=== PATIENT | female | born 1985 | race Caucasian/White ===

== ENCOUNTER 2016-12-13 11:35 | Emergency (ER) | payer MEDICAID ==
[~2016-12-13] VITALS: Ht 167.6 cm; Wt 100.0 kg
[~2016-12-13 11:35] MED LIST: ALLERGY10 M1 PO; AMOXICILLIN500 MG OR; ATENOLOL25 MG PO; AUGMENTIN875TAB PO; BACTRIM DS1 TAB PO; BIRTH CONTROL PILLS; CEPHALEXIN500 MG PO; CIPRO500 MG OR; CIPROFLOXACN500 MG PO; CONCEPT DHA PO; EFFEXOR XR37.5 MG PO; FLEXERIL PO; FLONASE NASAL50 MCG; KEFLEX500 M1 PO; LORTAB 5 OR; LORTAB 7.5-3251 TAB PO; LORTAB 7.57.5 MG PO; MACRODANTIN100 MG PO; NAPROSYN500 MG OR; NAPROSYN500 MG PO; NO HOME MEDS; NO MEDS; ONDANSETRON4 MG PO; PERCOCET 5/325M1 TAB OR; PERCOCET 5/325M1 TAB PO; PHENERGAN12.5 MG/TA PO; PHENERGAN25 MG/ML IM; PHENTERMINE37.5 MG PO; PROMETHAZINE25 MG OR; PYRIDIUM200 MG PO; RESTORIL15 MG PO; ROCEPHIN 1 GM1 GM IM; SPRINTEC 2828 DAY PO; TAM75CAP PO; TRIAMCINOLON0.025 % EX; ULTRAM50 M1 PO; ULTRAM50 MG OR; ZITHROMAX250 MG OR; ZOFRAN ODT4 MG PO; ZOFRAN4 MG/TAB PO
[2016-12-13] MEDS ORDERED: LORAZEPAM0.5 MG PO (11:51)
[2016-12-13] MEDS ORDERED: VENLAFAXINE HC150 MG PO (11:52)
[2016-12-13] MEDS ORDERED: MOTRIN800 MG PO (12:30)
[2016-12-13 12:35] VITALS: BP 131/84
== END 2016-12-13 12:35 | disposition home or self-care (01) | DRG 605 ==
LOC: ED 11:35
DX: S90.122A Contusion of left lesser toe(s) without damage to nail, initial encounter (principal); W50.0XXA Accidental hit or strike by another person, initial encounter; Y93.83 Activity, rough housing and horseplay; Y92.009 Unspecified place in unspecified non-institutional (private) residence as the place of occurrence of the external cause

== ENCOUNTER 2017-07-04 11:21 | Emergency (ER) | payer BC, MEDICAID ==
[~2017-07-04] VITALS: Ht 167.6 cm; Wt 93.0 kg
[~2017-07-04 11:21] MED LIST changes: +LORAZEPAM0.5 MG PO; +MOTRIN800 MG PO; +VENLAFAXINE HC150 MG PO
[2017-07-04 12:00] LABS: INFLUENZA A NONE DETECTED (NONE DETECT); INFLUENZA B NONE DETECTED (NONE DETECT)
[2017-07-04] MEDS ORDERED: ROBITUSSIN AC10 ML PO (12:04)
[2017-07-04] MEDS ORDERED: CLARITIN10 M1 PO (12:04)
[2017-07-04] MEDS ORDERED: AMOXICILLIN500 MG PO (12:04)
[2017-07-04 12:05] VITALS: BP 131/79
== END 2017-07-04 12:05 | disposition home or self-care (01) | DRG 153 ==
LOC: ED 11:21
PROVIDERS: Emergency Medicine
DX: J04.0 Acute laryngitis (principal); F17.210 Nicotine dependence, cigarettes, uncomplicated; J02.9 Acute pharyngitis, unspecified; R05 Cough; R19.7 Diarrhea, unspecified; R50.9 Fever, unspecified

== ENCOUNTER 2017-10-15 20:54 | Emergency (ER) | payer BC ==
[~2017-10-15] VITALS: Ht 167.6 cm; Wt 91.6 kg
[~2017-10-15 20:54] MED LIST changes: +AMOXICILLIN500 MG PO; +CLARITIN10 M1 PO; +ROBITUSSIN AC10 ML PO
[2017-10-15] MEDS ORDERED: ATIVAN0.5 MG PO (21:03)
[2017-10-15] MEDS ORDERED: EFFEXOR75 MG PO (21:03)
[2017-10-15 21:40] LABS: HEMATOCRIT 41.3 % (37.0-47.0); HEMOGLOBIN 13.9 g/dl (12.0-16.0); IMMATURE GRANULOCYTES 0.4 % (0.0-1.0); MEAN CELL VOLUME 97.9 fL CALC (80.0-100.0); MEAN CORPUSCULAR HGB 32.9 pG CALC (26.0-32.0); MEAN CORPUSCULAR HGB CONC 33.7 g/L CALC (32.0-36.0); NEUT# 7.26 thou/uL (2.00-7.15); RED BLOOD COUNT 4.22 mill/uL (4.20-5.60); RED CELL DISTRI WIDTH 13.1 % (11.5-15.5)
[2017-10-15 21:41] LABS: URINE BILIRUBIN - DIPSTICK NEGATIVE (NEGATIVE); URINE BLOOD DIPSTICK LARGE (NEGATIVE); URINE GLUCOSE - DIPSTICK NEGATIVE (NEGATIVE); URINE KETONE NEGATIVE (NEGATIVE); URINE LEUK ESTERASE NEGATIVE (NEGATIVE); URINE NITRITE - DIPSTICK NEGATIVE (Negative); URINE PH 5.5 (4.5-8.0); URINE PROTEIN - DIPSTICK TRACE mg/dL (NEG-TRACE); URINE SPECIFIC GRAVITY >=1.030; URINE UROBILINOGEN - DIPSTICK 0.2 E.U./dL (0.2)
[2017-10-15 21:46] LABS: URINE CLARITY CLOUDY; URINE COLOR AMBER
[2017-10-15 21:47] LABS: URINE RBC >100 RBC/hpf (0-5); URINE SQUAMOUS EPITHELIAL CELL FEW EPI/hpf (0-FEW)
[2017-10-15 21:53] LABS: ALBUMIN 4.3 g/dL (3.2-5.0); ALKALINE PHOSPHATASE 58 u/l (38-126); ANION GAP 17 (6-22 (CALC)); BILIRUBIN, TOTAL 0.5 mg/dL (0.0-1.4); BUN 11 mg/dL (7-17); BUN/CREATININE RATIO 15 (12-20 (CALC)); CARBON DIOXIDE 25 mmol/l (22-30); CHLORIDE 105 mmol/l (95-108); CREATININE 0.8 mg/dL (0.5-1.0); GFR > 60 ML/MIN (>=60 (CALC)); GFR FOR AFR.AMER. > 60 ML/MIN (>=60 (CALC)); POTASSIUM 4.2 mmol/l (3.5-5.1); SGOT/AST 25 u/l (14-36); SGPT/ALT 28 u/l (9-52); SODIUM 143 mmol/l (137-146); TOTAL PROTEIN 7.6 g/dL (6.3-8.2)
[2017-10-15] MEDS ORDERED: TRAMADOL HCL50 MG PO (23:10)
[2017-10-15] MEDS ORDERED: BACTRIM DS1 TAB PO (23:10)
[2017-10-15 23:30] VITALS: BP 100/57
== END 2017-10-15 23:30 | disposition home or self-care (01) | DRG 392 ==
LOC: ED 20:54
PROVIDERS: Family Medicine
DX: R10.32 Left lower quadrant pain (principal); D72.829 Elevated white blood cell count, unspecified; F17.210 Nicotine dependence, cigarettes, uncomplicated; Z87.442 Personal history of urinary calculi

== ENCOUNTER 2018-04-25 14:06 | Emergency (ER) | payer BC, MEDICAID ==
[~2018-04-25] VITALS: Ht 167.6 cm; Wt 80.0 kg
[~2018-04-25 14:06] MED LIST changes: +ATIVAN0.5 MG PO; +EFFEXOR75 MG PO; +TRAMADOL HCL50 MG PO
[2018-04-25 16:00] LABS: INFLUENZA A NONE DETECTED (NONE DETECT); INFLUENZA B NONE DETECTED (NONE DETECT)
[2018-04-25] MEDS ORDERED: TAM75CAP PO (16:26)
[2018-04-25] MEDS ORDERED: ZITHROMAX250 MG PO (16:26)
[2018-04-25] MEDS ORDERED: TORADOL PO (16:26)
[2018-04-25 16:30] VITALS: BP 121/75
== END 2018-04-25 16:30 | disposition home or self-care (01) | DRG 153 ==
LOC: ED 14:06
PROVIDERS: Emergency Medicine
DX: J06.9 Acute upper respiratory infection, unspecified (principal); F17.200 Nicotine dependence, unspecified, uncomplicated

== ENCOUNTER 2018-06-16 18:55 | Emergency (ER) | payer BC, MEDICAID ==
[~2018-06-16] VITALS: Ht 167.6 cm; Wt 85.4 kg
[~2018-06-16 18:55] MED LIST changes: +TORADOL PO; +ZITHROMAX250 MG PO
[2018-06-16] MEDS ORDERED: FLEXERIL PO (19:37)
[2018-06-16 19:44] VITALS: BP 127/74
== END 2018-06-16 19:46 | disposition home or self-care (01) | DRG 563 ==
LOC: ED 18:55
DX: S46.811A Strain of other muscles, fascia and tendons at shoulder and upper arm level, right arm, initial encounter (principal); M62.838 Other muscle spasm; M79.601 Pain in right arm; X50.0XXA Overexertion from strenuous movement or load, initial encounter; Y93.89 Activity, other specified; Y92.89 Other specified places as the place of occurrence of the external cause; Y99.0 Civilian activity done for income or pay

== ENCOUNTER 2018-08-07 11:00 | Outpatient (RCR) | payer BC, MEDICAID | END 2018-08-07 12:00 | disposition home or self-care (01) | DRG 74 | LOC: PT 11:00 | PROVIDERS: ATTEND Internal Medicine | DX: M54.12 Radiculopathy, cervical region (principal) ==

== ENCOUNTER 2018-10-09 10:53 | Emergency (ER) | payer BC, MEDICAID ==
[~2018-10-09] VITALS: Ht 167.6 cm; Wt 75.0 kg
[2018-10-09 12:09] LABS: URINE BILIRUBIN - DIPSTICK NEGATIVE (NEGATIVE); URINE BLOOD DIPSTICK SMALL (NEGATIVE); URINE COLOR YELLOW; URINE GLUCOSE - DIPSTICK NEGATIVE (NEGATIVE); URINE KETONE NEGATIVE (NEGATIVE); URINE LEUK ESTERASE NEGATIVE (NEGATIVE); URINE NITRITE - DIPSTICK NEGATIVE (Negative); URINE PH 6.5 (4.5-8.0); URINE PROTEIN - DIPSTICK NEGATIVE (NEG-TRACE); URINE UROBILINOGEN - DIPSTICK 0.2 E.U./dL (0.2)
[2018-10-09] MEDS ORDERED: DIFLUCAN150 MG PO (12:20)
[2018-10-09 12:22] LABS: URINE SQUAMOUS EPITHELIAL CELL FEW EPI/hpf (0-FEW); URINE WBC 0-2 WBC/hpf (0-5)
[2018-10-09 12:25] VITALS: BP 124/83
== END 2018-10-09 12:31 | disposition home or self-care (01) | DRG 759 ==
LOC: ED 10:53
PROVIDERS: Family Medicine
DX: B37.3 Candidiasis of vulva and vagina (principal); F17.200 Nicotine dependence, unspecified, uncomplicated; Z20.2 Contact with and (suspected) exposure to infections with a predominantly sexual mode of transmission

== ENCOUNTER 2019-03-28 16:44 | Emergency (ER) | payer BC ==
[~2019-03-28] VITALS: Ht 167.6 cm; Wt 83.0 kg
[~2019-03-28 16:44] MED LIST changes: +DIFLUCAN150 MG PO
[2019-03-28] MEDS ORDERED: KEFLEX500 M1 PO (17:06)
[2019-03-28] MEDS ORDERED: BACTROBAN TOP (17:06)
[2019-03-28 17:10] VITALS: BP 114/76
== END 2019-03-28 17:10 | disposition home or self-care (01) | DRG 935 ==
LOC: ED 16:44
DX: T23.012A Burn of unspecified degree of left thumb (nail), initial encounter (principal); L08.9 Local infection of the skin and subcutaneous tissue, unspecified; F17.200 Nicotine dependence, unspecified, uncomplicated; X08.8XXA Exposure to other specified smoke, fire and flames, initial encounter

== ENCOUNTER 2019-08-28 | Emergency (ER) | payer OTHER, BC ==
[~2019-08-28] MED LIST changes: +BACTROBAN TOP
[2019-08-28 21:55] LABS: HEMATOCRIT 40.5 % (37.0-47.0); HEMOGLOBIN 13.4 g/dl (12.0-16.0); IMMATURE GRANULOCYTES 0.3 % (0.0-5.0); MEAN CELL VOLUME 97.1 fL CALC (80.0-100.0); MEAN CORPUSCULAR HGB 32.1 pG CALC (26.0-32.0); MEAN CORPUSCULAR HGB CONC 33.1 g/dL CAL (32.0-36.0); NEUT# 6.79 thou/uL (2.00-7.15); RED BLOOD COUNT 4.17 mill/uL (4.20-5.60); RED CELL DISTRI WIDTH 12.8 % (11.5-15.5)
[2019-08-28 22:06] LABS: ALBUMIN 4.3 g/dL (3.2-5.0); ALKALINE PHOSPHATASE 57 u/l (38-126); ANION GAP 13 (6-22 (CALC)); BILIRUBIN, TOTAL 0.5 mg/dL (0.0-1.4); BUN 11 mg/dL (7-17); BUN/CREATININE RATIO 15 (12-20 (CALC)); CARBON DIOXIDE 25 mmol/l (22-30); CHLORIDE 108 mmol/l (95-108); CREATININE 0.7 mg/dL (0.5-1.0); GFR > 60 ML/MIN (>=60 (CALC)); GFR FOR AFR.AMER. > 60 ML/MIN (>=60 (CALC)); LIPASE 45 u/l (23-300); MAGNESIUM 2.4 mg/dL (1.6-2.3); POTASSIUM 3.6 mmol/l (3.5-5.1); SGOT/AST 25 u/l (14-36); SODIUM 143 mmol/l (137-146); TOTAL PROTEIN 7.6 g/dL (6.3-8.2)
[2019-08-28 22:12] LABS: INTERNATIONAL NORMALIZED RATIO 1.1 RATIO (0.7-1.3); PROTHROMBIN TIME 11.1 SECONDS (9.0-12.5)
[2019-08-29 03:40] LABS: URINE BILIRUBIN - DIPSTICK NEGATIVE (NEGATIVE); URINE BLOOD DIPSTICK NEGATIVE (NEGATIVE); URINE COLOR YELLOW; URINE GLUCOSE - DIPSTICK NEGATIVE (NEGATIVE); URINE KETONE NEGATIVE (NEGATIVE); URINE LEUK ESTERASE NEGATIVE (NEGATIVE); URINE NITRITE - DIPSTICK NEGATIVE (Negative); URINE PH 7.5 (4.5-8.0); URINE PROTEIN - DIPSTICK NEGATIVE (NEG-TRACE); URINE SPECIFIC GRAVITY 1.015
== END 2019-08-29 05:23 | disposition home or self-care (01) | DRG 153 ==
DX: J06.9 Acute upper respiratory infection, unspecified (principal); L03.317 Cellulitis of buttock; F17.210 Nicotine dependence, cigarettes, uncomplicated
CPT/HCPCS: Q9967

== ENCOUNTER 2020-09-01 14:00 | Emergency (ER) | payer OTHER ==
[~2020-09-01] VITALS: Ht 167.6 cm; Wt 73.0 kg
[2020-09-01] MEDS ORDERED: HYDROCO/APAP1 TA9 PO (17:47)
[2020-09-01 17:51] VITALS: BP 126/72
== END 2020-09-01 18:05 | disposition home or self-care (01) ==
LOC: ED 14:00
DX: S00.03XA Contusion of scalp, initial encounter (principal); S16.1XXA Strain of muscle, fascia and tendon at neck level, initial encounter; S10.93XA Contusion of unspecified part of neck, initial encounter; S50.311A Abrasion of right elbow, initial encounter; S50.812A Abrasion of left forearm, initial encounter; S90.512A Abrasion, left ankle, initial encounter; S80.812A Abrasion, left lower leg, initial encounter; F17.210 Nicotine dependence, cigarettes, uncomplicated; Y00.XXXA Assault by blunt object, initial encounter; Y92.009 Unspecified place in unspecified non-institutional (private) residence as the place of occurrence of the external cause

== ENCOUNTER 2020-09-21 14:34 | Emergency (ER) | payer OTHER ==
[~2020-09-21 14:34] MED LIST changes: +HYDROCO/APAP1 TA9 PO
[2020-09-21 15:45] VITALS: BP 109/65
== END 2020-09-21 15:45 | disposition home or self-care (01) ==
LOC: ED 14:34
DX: J10.1 Influenza due to other identified influenza virus with other respiratory manifestations (principal); Z20.822 Contact with and (suspected) exposure to COVID-19; F17.210 Nicotine dependence, cigarettes, uncomplicated

== ENCOUNTER 2021-12-05 10:39 | Emergency (ER) | payer BC, OTHER ==
[~2021-12-05] VITALS: Ht 167.6 cm; Wt 78.0 kg
[2021-12-05 11:12] VITALS: BP 117/70
[2021-12-05] MEDS ORDERED: CIPROFLOXACN750 MG PO (11:17)
[2021-12-05] MEDS ORDERED: DOXYCYCLINE40 MG (11:17)
[2021-12-05] MEDS ORDERED: DIFLUCAN40 MG/ML PO (11:18)
[2021-12-05 11:33] LABS: HEMATOCRIT 38.8 % (37.0-47.0); HEMOGLOBIN 12.4 g/dl (12.0-16.0); IMMATURE GRANULOCYTES 0.4 % (0.0-5.0); MEAN CELL VOLUME 101.6 fL CALC (80.0-100.0); MEAN CORPUSCULAR HGB 32.5 pG CALC (26.0-32.0); NEUT# 7.86 thou/uL (2.00-7.15); RED BLOOD COUNT 3.82 mill/uL (4.20-5.60); RED CELL DISTRI WIDTH 13.9 % (11.5-15.5)
[2021-12-05 12:28] LABS: ALBUMIN 4.1 g/dL (3.2-5.0); ALKALINE PHOSPHATASE 50 u/l (38-126); ANION GAP 10 (6-22 (CALC)); BILIRUBIN, TOTAL 0.4 mg/dL (0.0-1.4); BUN 8 mg/dL (7-17); BUN/CREATININE RATIO 10 (12-20 (CALC)); CARBON DIOXIDE 26 mmol/l (22-30); CHLORIDE 107 mmol/l (95-108); CREATININE 0.8 mg/dL (0.5-1.0); GFR FOR AFR.AMER. > 60 ML/MIN (>=60 (CALC)); GFR OTHER RACES > 60 ML/MIN (>=60 (CALC)); POTASSIUM 3.7 mmol/l (3.5-5.1); SGOT/AST 19 u/l (14-36); SODIUM 139 mmol/l (137-146); TOTAL PROTEIN 6.5 g/dL (6.3-8.2)
== END 2021-12-05 13:45 | disposition home or self-care (01) | DRG 951 ==
LOC: ED 10:39
PROVIDERS: Family Medicine
DX: Z77.21 Contact with and (suspected) exposure to potentially hazardous body fluids (principal); F17.210 Nicotine dependence, cigarettes, uncomplicated

== ENCOUNTER 2022-03-01 18:20 | Emergency (ER) | payer BC, OTHER ==
[~2022-03-01] VITALS: Ht 167.6 cm; Wt 75.0 kg
[2022-03-01] VITALS (14 sets, daily range): BP systolic 96–125; BP diastolic 37–78
[~2022-03-01 18:20] MED LIST changes: +CIPROFLOXACN750 MG PO; +DIFLUCAN40 MG/ML PO; +DOXYCYCLINE40 MG
[2022-03-01 19:07] LABS: HEMATOCRIT 35.5 % (37.0-47.0); HEMOGLOBIN 11.8 g/dl (12.0-16.0); IMMATURE GRANULOCYTES 0.2 % (0.0-5.0); MEAN CELL VOLUME 95.9 fL CALC (80.0-100.0); MEAN CORPUSCULAR HGB 31.9 pG CALC (26.0-32.0); MEAN CORPUSCULAR HGB CONC 33.2 g/dL CAL (32.0-36.0); NEUT# 7.49 thou/uL (2.00-7.15); RED BLOOD COUNT 3.7 mill/uL (4.20-5.60)
[2022-03-01 19:08] LABS: URINE BILIRUBIN - DIPSTICK NEGATIVE (NEGATIVE); URINE BLOOD DIPSTICK NEGATIVE (NEGATIVE); URINE COLOR YELLOW; URINE GLUCOSE - DIPSTICK NEGATIVE (NEGATIVE); URINE KETONE NEGATIVE (NEGATIVE); URINE LEUK ESTERASE NEGATIVE (NEGATIVE); URINE PROTEIN - DIPSTICK NEGATIVE (NEG-TRACE); URINE SPECIFIC GRAVITY >=1.030; URINE UROBILINOGEN - DIPSTICK 0.2 E.U./dL (0.2)
[2022-03-01 19:10] LABS: URINE NITRITE - DIPSTICK NEGATIVE (Negative)
[2022-03-01 19:24] LABS: ALBUMIN 3.8 g/dL (3.2-5.0); ALKALINE PHOSPHATASE 44 u/l (38-126); ANION GAP 10 (6-22 (CALC)); BUN 8 mg/dL (7-17); BUN/CREATININE RATIO 12 (12-20 (CALC)); CARBON DIOXIDE 22 mmol/l (22-30); CHLORIDE 110 mmol/l (95-108); CREATININE 0.7 mg/dL (0.5-1.0); GFR FOR AFR.AMER. > 60 ML/MIN (>=60 (CALC)); GFR OTHER RACES > 60 ML/MIN (>=60 (CALC)); LIPASE 66 u/l (23-300); POTASSIUM 3.7 mmol/l (3.5-5.1); SGOT/AST 25 u/l (14-36); SODIUM 138 mmol/l (137-146); TOTAL PROTEIN 6.2 g/dL (6.3-8.2)
[2022-03-01 19:27] LABS: BILIRUBIN, TOTAL 0.2 mg/dL (0.0-1.4)
[2022-03-01 19:37] LABS: MYOGLOBIN 15 ng/mL (0 - 62)
[2022-03-01] MEDS ORDERED: ULTRAM50 M1 PO (20:46)
[2022-03-01] MEDS ORDERED: DICYCLOMINE10 MG PO (20:46)
[2022-03-01] MEDS ORDERED: ONDANSETRON4 MG PO (20:46)
== END 2022-03-01 21:26 | disposition home or self-care (01) | DRG 866 ==
LOC: ED 18:20
PROVIDERS: Nurse Practitioner
DX: B34.9 Viral infection, unspecified (principal); R14.0 Abdominal distension (gaseous); F17.200 Nicotine dependence, unspecified, uncomplicated; Z20.822 Contact with and (suspected) exposure to COVID-19
CPT/HCPCS: Q9967

== ENCOUNTER 2022-06-02 09:59 | Emergency (ER) | payer BC, OTHER ==
[~2022-06-02] VITALS: Ht 167.6 cm; Wt 80.5 kg
[~2022-06-02 09:59] MED LIST changes: +DICYCLOMINE10 MG PO
[2022-06-02 11:07] LABS: URINE BILIRUBIN - DIPSTICK NEGATIVE (NEGATIVE); URINE BLOOD DIPSTICK MODERATE (NEGATIVE); URINE COLOR YELLOW; URINE GLUCOSE - DIPSTICK NEGATIVE (NEGATIVE); URINE KETONE NEGATIVE (NEGATIVE); URINE LEUK ESTERASE NEGATIVE (NEGATIVE); URINE PROTEIN - DIPSTICK NEGATIVE (NEG-TRACE); URINE SPECIFIC GRAVITY >=1.030; URINE UROBILINOGEN - DIPSTICK 0.2 E.U./dL (0.2)
[2022-06-02 11:10] LABS: URINE NITRITE - DIPSTICK NEGATIVE (Negative)
[2022-06-02 11:20] LABS: URINE BACTERIA FEW hpf; URINE MUCUS FEW hpf (NONE-FEW); URINE SQUAMOUS EPITHELIAL CELL FEW EPI/hpf (0-FEW); URINE WBC 0-2 WBC/hpf (0-5)
[2022-06-02] MEDS ORDERED: PAXLOVID PO (11:26)
== END 2022-06-02 13:00 | disposition home or self-care (01) | DRG 179 ==
LOC: ED 09:59
PROVIDERS: Family Medicine
DX: U07.1 COVID-19 (principal); F17.210 Nicotine dependence, cigarettes, uncomplicated; R30.0 Dysuria; R00.2 Palpitations

== ENCOUNTER 2022-06-23 10:40 | Emergency (ER) | payer BC, OTHER ==
[~2022-06-23] VITALS: Ht 167.6 cm; Wt 80.8 kg
[~2022-06-23 10:40] MED LIST changes: +PAXLOVID PO
[2022-06-23 10:48] VITALS: BP 114/70
[2022-06-23 11:00] VITALS: BP 110/70
[2022-06-23 11:15] VITALS: BP 105/66
[2022-06-23 11:30] VITALS: BP 110/69
[2022-06-23] MEDS ORDERED: BACTRIM DS1 TAB PO (11:36)
[2022-06-23 11:45] VITALS: BP 103/52
[2022-06-23 11:49] VITALS: BP 103/52
== END 2022-06-23 11:55 | disposition home or self-care (01) | DRG 607 ==
LOC: ED 10:40
DX: L73.8 Other specified follicular disorders (principal)

== ENCOUNTER 2022-09-06 11:59 | Emergency (ER) | payer BC, OTHER ==
[~2022-09-06] VITALS: Ht 167.6 cm; Wt 83.9 kg
[2022-09-06] MEDS ORDERED: AMOX/K CLAV875 M1 PO (13:03)
[2022-09-06 13:18] VITALS: BP 106/62
[2022-09-06 13:22] VITALS: BP 106/62
== END 2022-09-06 13:25 | disposition home or self-care (01) | DRG 153 ==
LOC: ED 11:59
DX: H66.91 Otitis media, unspecified, right ear (principal); Z20.822 Contact with and (suspected) exposure to COVID-19; F17.210 Nicotine dependence, cigarettes, uncomplicated

== ENCOUNTER 2023-12-18 12:39 | Emergency (ER) | payer BC ==
[~2023-12-18] VITALS: Ht 167.6 cm; Wt 81.0 kg
[~2023-12-18 12:39] MED LIST changes: +AMOX/K CLAV875 M1 PO; +VOLTAREN - GENE75 MG PO
[2023-12-18 13:10] LABS: URINE BILIRUBIN - DIPSTICK Negative (NEGATIVE); URINE BLOOD DIPSTICK Trace-intact (NEGATIVE); URINE GLUCOSE - DIPSTICK Negative (NEGATIVE); URINE KETONE Negative (NEGATIVE); URINE LEUK ESTERASE Trace (NEGATIVE); URINE NITRITE - DIPSTICK Negative (Negative); URINE PH 6.5 (4.5-8.0); URINE PROTEIN - DIPSTICK Negative (NEG-TRACE); URINE SPECIFIC GRAVITY 1.025; URINE UROBILINOGEN - DIPSTICK 0.2 E.U./dL (0.2)
[2023-12-18 13:11] LABS: URINE COLOR Yellow
[2023-12-18 13:12] LABS: BASO% 0.5 % (0-3); EOS% 1.8 % (0-8); HEMATOCRIT 40.7 % (37.0-47.0); IMMATURE GRANULOCYTES 0.2 % (0.0-5.0); LYMPH% 24.2 % (15-41); MEAN CORPUSCULAR HGB 30.4 pG CALC (26.0-32.0); MEAN CORPUSCULAR HGB CONC 31.9 g/dL CAL (32.0-36.0); MONO% 5.2 % (2-13); NEUT# 8.43 thou/uL (2.00-7.15); NEUT% 68.1 % (42-76); RED BLOOD COUNT 4.28 mill/uL (4.20-5.60); RED CELL DISTRI WIDTH 14.3 % (11.5-15.5)
[2023-12-18 13:16] LABS: MEAN CELL VOLUME 95.1 fL CALC (80.0-100.0)
[2023-12-18 13:20] LABS: ALBUMIN 4.8 g/dL (3.2-5.0); CREATININE 0.6 mg/dL (0.5-1.0); POTASSIUM 3.9 mmol/l (3.5-5.1)
[2023-12-18 13:30] LABS: BILIRUBIN, TOTAL 0.6 mg/dL (0.02-1.3)
[2023-12-18] MEDS ORDERED: ONDANSETRON HCl 4 MG/2 ML SDV IV ONE (14:00)
[2023-12-18] MEDS ORDERED: KETOROLAC TROMETHAMINE 15 MG/ML SDV IV ONE (14:00)
[2023-12-18] MEDS ORDERED: SODIUM CHLORIDE 0.9% 1,000 ML IV ONE (14:00)
[2023-12-18] MEDS ORDERED: MORPHINE SULFATE 4 MG/ML VIAL IV ONE (16:30)
[2023-12-18] MEDS ORDERED: OMEPRAZOLE DR40 MG PO (18:29)
[2023-12-18] MEDS ORDERED: ZOFRAN4 MG/TAB PO (18:29)
[2023-12-18 18:37] VITALS: BP 109/65
[2023-12-18] MEDS ORDERED: Pantoprazole Sodium 40 MG VIAL (Protonix) IV ONE (18:40)
[2023-12-18 18:46] VITALS: BP 109/65
== END 2023-12-18 18:50 | disposition home or self-care (01) | DRG 392 ==
LOC: ED 12:39
PROVIDERS: Family Medicine
DX: R10.11 Right upper quadrant pain (principal); R10.13 Epigastric pain; F17.200 Nicotine dependence, unspecified, uncomplicated
CPT/HCPCS: J2470; Q9967

== ENCOUNTER 2024-06-13 09:43 | Emergency (ER) | payer BC ==
[~2024-06-13] VITALS: Ht 167.6 cm; Wt 87.0 kg
[~2024-06-13 09:43] MED LIST changes: +BIOTIN XX; +COLLAGE2 PO; +OMEPRAZOLE DR40 MG PO
[2024-06-13 09:57] VITALS: BP 109/75
[2024-06-13 10:00] VITALS: BP 103/67
[2024-06-13 10:15] VITALS: BP 117/76
[2024-06-13 10:30] VITALS: BP 109/72
[2024-06-13 10:45] VITALS: BP 108/73
[2024-06-13] MEDS ORDERED: ZPAK PO (10:56)
[2024-06-13] MEDS ORDERED: BENZONATATE200 MG PO (10:56)
[2024-06-13 11:15] VITALS: BP 108/73
== END 2024-06-13 11:22 | disposition home or self-care (01) | DRG 153 ==
LOC: ED 09:43
DX: J06.9 Acute upper respiratory infection, unspecified (principal); R05.9 Cough, unspecified; R50.9 Fever, unspecified

== ENCOUNTER 2024-07-15 11:00 | Emergency (ER) | payer OTHER, BC ==
[~2024-07-15] VITALS: Ht 167.6 cm; Wt 89.0 kg
[2024-07-15] VITALS (7 sets, daily range): BP systolic 111–122; BP diastolic 72–88
[~2024-07-15 11:00] MED LIST changes: +BENZONATATE200 MG PO; +ZPAK PO
[2024-07-15] MEDS ORDERED: KETOROLAC TROMETHAMINE 30 MG/ML SDV IM ONE (12:50)
[2024-07-15] MEDS ORDERED: ORPHENADRINE CITRATE 30 MG/ML AMP IM ONE (12:50)
[2024-07-15] MEDS ORDERED: XANAX0.25 MG PO (14:06)
[2024-07-15] MEDS ORDERED: METHOCARBAMOL500 MG PO (14:06)
[2024-07-15] MEDS ORDERED: NAPROXEN500 MG PO (14:06)
== END 2024-07-15 16:42 | disposition home or self-care (01) | DRG 605 ==
LOC: ED 11:00
DX: S60.511A Abrasion of right hand, initial encounter (principal); S00.83XA Contusion of other part of head, initial encounter; Y04.0XXA Assault by unarmed brawl or fight, initial encounter; F17.200 Nicotine dependence, unspecified, uncomplicated
CPT/HCPCS: J2360